=== PATIENT | male | born 1935 | race African-American/Black ===

== ENCOUNTER → 2018-03-01 | Outpatient (CLI) | payer MEDICARE | END | disposition home or self-care (01) | LOC: KCIC US 08:28 | DX: I77.811 Abdominal aortic ectasia (principal) | CPT/HCPCS: 76700 ==

== ENCOUNTER → 2018-07-30 | Outpatient (CLI) | payer MEDICARE ==
[2017-03-09 15:51] VITALS: BP 96/62
[~2018-07-30] MED LIST: ALFU10TA3 PO; AMLO5TAB7 PO; ASPI-482 PO; BRIM5DRO2 OP; FLUD0.1T PO; LATA2.5D3 EACHEYE; LISI-334 PO; LOSA100T14 PO; METF500T16 PO; MIDO10TA PO; OXYB10TA PO; REGADENOSON 0.4 MG/5 ML DISP.SYRIN. IV ONE
--- NOTE | 2018-07-30 10:47 | CARD ---
MR#: [id number] Date of Study: 07/30/2018 Ordering Physician: WILEY DURBIN, Referring Physician: WILEY DURBIN, Tech: Whitley Pak APPROVED REPORT EXAM: Two-dimensional and M-mode echocardiogram with Doppler and color Doppler. Other Information Quality : GoodHR: 52bpm INDICATION Chest Pain RISK FACTORS Hypertension Diabetes 2D DIMENSIONS RVDd3.3 (2.9-3.5cm)Left Atrium(2D)3.2 (1.6-4.0cm) IVSd1.0 (0.7-1.1cm)Aortic Root(2D)3.3 (2.0-3.7cm) LVDd5.2 (3.9-5.9cm)LVOT Diameter2.1 (1.8-2.4cm) PWd1.0 (0.7-1.1cm)LVDs3.9 (2.5-4.0cm) FS (%) 24.9 %SV62.4 ml Aortic Valve AoV Peak Brian.146.9cm/sAoV VTI29.5cm AO Peak GR.8.6mmHgLVOT Peak Brian.114.2cm/s LVOT VTI 25.54cmAO Mean GR.4mmHg JEAN (VMAX)2.34yj7HNZ (VTI)3.03cm2 AI P 1/2 Jiqy616gr Mitral Valve MV E Dkzpyrmn87.1cm/sMV DECEL UJJL130re MV A Nzxwjmla27.8cm/sMV XCB97xe E/A Ratio0.8MVA (PHT)2.57cm2 TDI E/Lateral E'6.5E/Medial E'7.8 Pulmonary Valve PV Peak Vjqafnct17.0cm/sPV Peak Grad.2mmHg Tricuspid Valve TR P. Ddnixdzp318rv/sRAP VBZNKOOK6fzWd TR Peak Gr.41wjWzDVIQ97pcVf Pulmonary Vein S1 Licezniq45.7cm/sD2 Eoagqyqm04.9cm/s PVa rzsziymu400ybff LEFT VENTRICLE The left ventricle is normal size. There is normal left ventricular wall thickness. The left ventricu lar systolic function is normal. The Ejection Fraction is 55-60%. There is normal LV segmental wall m otion. Transmitral Doppler flow pattern is Grade I-abnormal relaxation pattern. RIGHT VENTRICLE The right ventricle is normal size. There is normal right ventricular wall thickness. ATRIA The left atrium size is normal. The right atrium size is normal. The interatrial septum is intact wit h no evidence for an atrial septal defect or patent foramen ovale as noted on 2-D or Doppler imaging. AORTIC VALVE The aortic valve is normal in structure and function. Doppler and Color Flow revealed trace to mild a ortic regurgitation. There is no significant aortic valvular stenosis. MITRAL VALVE The mitral valve is thickened but opens well. There is no mitral valve stenosis. Doppler and Color-fl ow revealed trace mitral regurgitation. TRICUSPID VALVE The tricuspid valve is normal in structure and function. Doppler and Color Flow revealed trace tricus pid regurgitation. There is no tricuspid valve stenosis. PULMONIC VALVE The pulmonic valve is not well visualized. Doppler and Color Flow revealed trace pulmonic valvular re gurgitation. GREAT VESSELS The aortic root is normal in size. Normal pulmonary venous flow (Doppler). The IVC is normal in size and collapses >50% with inspiration. PERICARDIAL EFFUSION There is no evidence of significant pericardial effusion. Critical Notification Critical Value: No <Conclusion> The left ventricular systolic function is normal. The Ejection Fraction is 55-60%. There is normal LV segmental wall motion. Transmitral Doppler flow pattern is Grade I-abnormal relaxation pattern. Trace to mild aortic regurgitation. Trace mitral regurgitation. Trace tricuspid regurgitation. There is no evidence of significant pericardial effusion. Signed by : Wiley Durbin, Electronically Approved : 07/30/2018 10:45:45
--- NOTE | 2018-07-30 15:08 | RAD ---
MR#: [id number] Date of Study: 07/30/2018 Ordering Physician: WILEY SANTIAGO, Referring Physician: VICTORIA MCCRARY Tech: VAIBHAV Kwnog, ARRT (R) (N) APPROVED REPORT Test Type: Pharmacological Stress Nurse/Tech: Zoe Cat R.N. Test Indications: chest pain, dizziness Cardiac History: Family history, Hypertension Medications: See Electronic Medical Record Medical History: See Electronic Medical Record Resting ECG: sinus arrythmia, PAC's, PVC;s Resting Heart Rate: 68 bpm Resting Blood Pressure: 208/88mmHg Pretest Chest Pain: No chest pain Nurse/Tech Notes S1S2, lungs sound clear Consent: The procedure was explained to the patient in lay terms. Informed consent was witnessed. Andres eout was entered into [employer]. History and Stress Test performed by Marimar AlexanderNJaron Pharm. Details Pharmacologic stress testing was performed using 0.4mg per 5ml of regadenoson given intravenously ove r 7-10 seconds. Stress Symptoms No chest pain or symptoms. POST EXERCISE Reason for Termination: Infusion complete Target HR: 116 Max HR: 92 bpm Max Blood Pressure: 205/81mmHg Blood Pressure response to exercise: Normal blood pressure response during stress. Chest Pain: No. Arrhythmia: Yes. continues to have PAC's and PVC's ST Change: No. INTERPRETATION Stress EKG Conclusion: The resting EKG shows a sinus rhythm with mild nonspecific ST-T wave changes. The stress EKG shows no significant changes from baseline. No EKG evidence of stress-induced ischemia. Imaging Protocol IMAGE PROTOCOL: Rest Tc-99m/stress Tc-99m 1 day Rest: Stress: Viability: Radiopharm.Tc99m WotsuphgaJm81y Sestamibi Dose12.2mCi 30mCi Img Date 07/30/2018 07/30/2018 Inj-Img Xbvl02dxy. 60min. Rest Admin Site:IV - Left HandAdministrator:MARSHA Stein Stress Admin Site: IV - Left HandAdministrator: RT Gracie (R)(N) STRESS DATA End Diast. Vol.84.0mlLVEDV index BSA47.0ml End Syst. Vol.30.0mlLVESV index BSA17.0ml Myocardial Clrz177.0gEject. Oippzijm51.0% Stress Scores Regional WT1.00Summed WT12.00 Regional WM0.00Summed WM3.00 LV Perfusion The stress scans showed no significant defects. The rest scans showed no significant defects. Nuclear imaging shows no reversible ischemia or infarct. Wall Motion Normal left ventricular systolic function with an ejection fraction of 66%. LV Perf. Quant 17 Seg. SSS2.00 17 Seg. SRS5.00 17 Seg. SDS0.00 Stress Defect Extent (% LAD)0.00Rest Defect Extent (% LAD)11.30Rev. Defect Extent (% LAD)0.00 Stress Defect Extent (% LCX) 15.00Rest Defect Extent (% LCX)25.00Rev. Defect Extent (% LCX)0.00 Stress Defect Extent (% RCA)0.00Rest Defect Extent (% RCA)0.00Rev. Defect Extent (% RCA)0.00 Stress Defect Extent (% NAVIN)2.60Rest Defect Extent (% NAVIN)8.70Rev. Defect Extent (% NAVIN)0.00 Conclusion 1. No EKG evidence of stressed induced ischemia. 2. Nuclear imaging shows no reversible ischemia or infarct. 3. Left ventricular systolic function is normal with an ejection fraction of 66%. 4. Low risk Lexiscan nuclear stress test. Signed by : Ham Yeh MD Electronically Approved : 07/30/2018 15:06:44
== END | disposition home or self-care (01) ==
LOC: NM 08:46
PROVIDERS: ATTEND Internal Medicine Cardiovascular Disease
DX: R07.89 Other chest pain (principal); R42 Dizziness and giddiness; I12.9 Hypertensive chronic kidney disease with stage 1 through stage 4 chronic kidney disease, or unspecified chronic kidney disease; E11.22 Type 2 diabetes mellitus with diabetic chronic kidney disease; N18.2 Chronic kidney disease, stage 2 (mild); Z82.49 Family history of ischemic heart disease and other diseases of the circulatory system
CPT/HCPCS: 78452; 93017; 93306; 96374; 96375; 96376; A9500; J2785

== ENCOUNTER → 2018-09-06 | Outpatient (CLI) | payer MEDICARE ==
[2017-03-09 15:51] VITALS: BP 96/62
[~2018-09-06] MED LIST changes: -REGADENOSON 0.4 MG/5 ML DISP.SYRIN. IV ONE
--- NOTE | 2018-09-06 15:03 | KCIC ---
Renal ultrasound 09/06/2018 INDICATION: Chronic renal disease. COMPARISON STUDY: None. Discussion: Sonographic evaluation of the kidneys was performed. Static images are submitted to PACS. The right kidney is mildly atrophic, and mildly echogenic in appearance measuring 9.4 x 3.8 x 5.2 cm. Left kidney measures 10.1 x 5.7 x 3.9 cm and is also mildly echogenic in appearance. A somewhat nonspecific the findings most commonly related to chronic medical renal disease. No hydronephrosis, nephrolithiasis, or focal renal lesion is seen involving either kidney. Limited visualization of the bladder is unremarkable. Ureteral jets are noted bilaterally. IMPRESSION: Mildly atrophic right kidney. Mildly echogenic appearance of both kidneys. Findings suggest chronic medical renal disease. Electronically signed by: Saul Ahmadi MD (09/06/2018 2:58 PM) [facility] [facility]
== END | disposition home or self-care (01) ==
LOC: KCIC US 11:56
PROVIDERS: ATTEND Internal Medicine Nephrology
DX: E11.22 Type 2 diabetes mellitus with diabetic chronic kidney disease (principal); I12.9 Hypertensive chronic kidney disease with stage 1 through stage 4 chronic kidney disease, or unspecified chronic kidney disease; N18.9 Chronic kidney disease, unspecified
CPT/HCPCS: 76770

== ENCOUNTER → 2019-01-07 | Outpatient (CLI) | payer MEDICARE ==
[2017-03-09 15:51] VITALS: BP 96/62
[~2019-01-07] MED LIST changes: +AMLO5TAB10 PO; -AMLO5TAB7 PO
--- NOTE | 2019-01-07 11:43 | CARD ---
MR#: [id number] Date of Study: 01/07/2019 Ordering Physician: WILEY DURBIN, Referring Physician: WILEY DURBIN, Tech: APPROVED REPORT PROCEDURE: Successful implantation of [employer] Confirm loop recorder INDICATIONS: Cardiac arrhythmia and sick sinus syndrome PROCEDURE DETAILS: An informed consent was obtained from patient. Patient was brought to the procedure suite and her le ft chest and shoulder were prepped and draped in the usual fashion. 20 mL of 2% lidocaine was infilt rated into the skin and subcutaneous tissues for local anesthesia. An incision was made in the left third intercostal space 1 inch from midsternal line and using the introducer provided with the kit a track was created in subcutaneous tissue. Subsequently, with the help of the deployer provided with the kit, a [employer] Confirm loop recorder serial number [id number] was placed in the subcutaneous tiss ue. Hemostasis was secured. Patient tolerated the procedure well. There were no immediate complicat ions. At the end of procedure, the device showed sensing amplitude of 1.06 mV. CONCLUSION: Successful implantation of [employer] Confirm loop recorder to assess arrhythmia burden. Signed by : Wiley Durbin, Electronically Approved : 01/07/2019 11:42:33
== END | disposition home or self-care (01) ==
LOC: LINQ 10:39
PROVIDERS: ATTEND Internal Medicine Cardiovascular Disease
DX: I49.5 Sick sinus syndrome (principal); I49.9 Cardiac arrhythmia, unspecified
CPT/HCPCS: 33285; C1764

== ENCOUNTER → 2019-07-21 | Outpatient (CLI) | payer MEDICARE ==
[2019-07-09 11:00] VITALS: BP 135/73
[~2019-07-21] MED LIST changes: -ALFU10TA3 PO; +ALFU10TA4 PO; +ATOR10TA60 PO; +CHOL400C PO; +FERR325T14 PO; -OXYB10TA PO; +OXYB10TA2 PO; +OXYB5TAB3 PO; +REGADENOSON 0.4 MG/5 ML DISP.SYRIN. IV ONE
--- NOTE | 2019-07-21 11:16 | RAD ---
MR#: [id number] Date of Study: 07/21/2019 Ordering Physician: WILEY SANTIAGO Referring Physician: VICTORIA MCCRARY Tech: RT Kym BowmanR) (N) APPROVED REPORT Test Type: Pharmacological Stress Nurse/Tech: Trisha Pratt RN Test Indications: cardiac arrhythmia, syncope Medications: See Electronic Medical Record Medical History: See Electronic Medical Record Resting ECG: SR PAC Resting Heart Rate: 69 bpm Resting Blood Pressure: 167/86mmHg Pretest Chest Pain: None Nurse/Tech Notes Lungs CTA, S1S2 Consent: The procedure was explained to the patient in lay terms. Informed consent was witnessed. Andres eout was entered into [employer]. History and Stress Test performed by RT Brody (R) (N) Pharm. Details Pharmacologic stress testing was performed using 0.4mg per 5ml of regadenoson given intravenously ove r 7-10 seconds. Stress Symptoms No chest pain or symptoms. POST EXERCISE Reason for Termination: Infusion complete Max HR: 95 bpm Max Blood Pressure: 146/67mmHg Blood Pressure response to exercise: Normal blood pressure response during stress. Heart Rate response to exercise: normal response Chest Pain: No. Arrhythmia: Yes. PAC, PVC ST Change: No. INTERPRETATION Stress EKG Conclusion: Baseline EKG showed sinus rhythm. No ischemic changes at peak stress. No sig nificant arrhythmias. Imaging Protocol IMAGE PROTOCOL: Rest Tc-99m/stress Tc-99m 1 day Rest: Stress: Viability: Radiopharm.Tc99m VvyntyjppLs39f Sestamibi Empa76gUr 32.5mCi Duration 13min. 13min. Img Date 07/21/2019 07/21/2019 Inj-Img Wals61mot. 60min. Rest Admin Site:IV - Left HandAdministrator:VAIBHAV Kwong, ARRT (R)(N) Stress Admin Site: IV - Left HandAdministrator: RT Kym SkinnerR)(N) STRESS DATA End Diast. Vol.87.0mlLVEDV index BSA49.0ml End Syst. Vol.20.0mlLVESV index BSA11.0ml Myocardial Podx517.0gEject. Lnumiftl72.0% Stress Scores Regional WT0.00Summed WT0.00 Regional WM0.00Summed WM0.00 Study quality was good. Left Ventricular size was Normal at Rest and Stress. Lung uptake was . Left Ventricular ejection fraction is 77%. The rest and stress images show normal perfusion, normal contraction and thickening. LV Perf. Quant 17 Seg. SSS2.00 17 Seg. SRS7.00 17 Seg. SDS0.00 Stress Defect Extent (% LAD)0.00Rest Defect Extent (% LAD)6.30Rev. Defect Extent (% LAD)0.00 Stress Defect Extent (% LCX) 13.80Rest Defect Extent (% LCX)28.80Rev. Defect Extent (% LCX)0.00 Stress Defect Extent (% RCA)0.00Rest Defect Extent (% RCA)7.80Rev. Defect Extent (% RCA)0.00 Stress Defect Extent (% NAVIN)2.40Rest Defect Extent (% NAVIN)10.20Rev. Defect Extent (% NAVIN)0.00 Conclusion 1. Regadenoson cardioisotope stress test did not show any evidence of ischemia or infarct. 2. Normal left ventricular systolic function with ejection fraction calculated at 77%. 3. Low risk for cardiac events. Signed by : Wiley Santiago Electronically Approved : 07/21/2019 11:16:18
== END ==
LOC: NM 07:20
PROVIDERS: ATTEND Internal Medicine Cardiovascular Disease
DX: I25.10 Atherosclerotic heart disease of native coronary artery without angina pectoris (principal); I49.9 Cardiac arrhythmia, unspecified; I13.0 Hypertensive heart and chronic kidney disease with heart failure and stage 1 through stage 4 chronic kidney disease, or unspecified chronic kidney disease; E11.22 Type 2 diabetes mellitus with diabetic chronic kidney disease; I50.9 Heart failure, unspecified; N18.2 Chronic kidney disease, stage 2 (mild)
CPT/HCPCS: 78452; 93017; A9500; J2785

== ENCOUNTER 2019-08-26 19:03 | Emergency (ER) | payer MEDICARE ==
[~2019-08-26] VITALS: Ht 162.6 cm; Wt 73.0 kg
[~2019-08-26 19:03] MED LIST changes: +OXYB-36 PO; -OXYB10TA2 PO; +OXYB10TA26 PO; -OXYB5TAB3 PO; -REGADENOSON 0.4 MG/5 ML DISP.SYRIN. IV ONE
--- NOTE | 2019-08-26 21:48 | RAD ---
CT HEAD INDICATION: Hypertension, dizziness COMPARISON: 03/07/2019 Exposure: One or more of the following individualized dose reduction techniques were utilized for this examination: 1. Automated exposure control 2. Adjustment of the mA and/or kV according to patient size 3. Use of iterative reconstruction technique TECHNIQUE: 5 mm contiguous axial images were obtained from the skull base to the vertex in both bone and soft tissue algorithm. FINDINGS: No abnormal attenuation within the brain parenchyma. No evidence of acute intracranial hemorrhage. No extra-axial fluid collections. No mass effect or midline shift. Ventricular size is appropriate. Basal cisterns are patent. No fractures identified.Vieira-white differentiation is preserved.Globes and orbits are within normal limits. Paranasal sinuses and mastoid air cells are clear. IMPRESSION: No acute intracranial findings. Electronically signed by: Tulio Taylor MD (08/26/2019 9:45 PM) [facility] [place]
--- NOTE | 2019-08-26 21:53 | RAD ---
AP chest. HISTORY: Syncope AP view was taken of the chest. Lungs are clear. Heart is normal in size. Aorta is mildly tortuous. There is no effusion. IMPRESSION: 1. No acute infiltrates. Electronically signed by: Liborio Diallo MD (08/26/2019 9:50 PM) [facility]
[2019-08-26] MEDS: hydrALAZINE 20 MG/ML VIAL. IVP ONE ×2 (21:56→23:52)
[2019-08-26 22:07] LABS: BASO # 0.1 x10^3/uL (0.0-0.2); BASO % 1 % (0-3); EOS # 0.4 x10^3/uL (0.0-0.7); EOS % 7 % (0-3); HEMATOCRIT 38.2 % (39.0-53.0); HEMOGLOBIN 12.5 g/dL (13.0-17.5); LYMPH # 2.6 x10^3/uL (1.0-4.8); LYMPH % 43 % (24-48); MEAN CORPUSCULAR HEMOGLOBIN 30 pg (25-35); MEAN CORPUSCULAR HGB CONC 33 g/dL (31-37); MEAN CORPUSCULAR VOLUME 90 fL (79-100); MONO # 0.7 x10^3/uL (0.0-1.1); MONO % 11 % (0-9); NEUT # 2.2 x10^3/uL (1.8-7.7); NEUT % 38 % (31-73); PLATELET COUNT 206 x10^3/uL (140-400); RED BLOOD COUNT 4.24 x10^6/uL (4.30-5.70); RED CELL DISTRIBUTION WIDTH 13.4 % (11.5-14.5); WHITE BLOOD COUNT 5.9 x10^3/uL (4.0-11.0)
[2019-08-26 22:13] LABS: BILIRUBIN,URINE NEGATIVE (NEG); CLARITY,URINE CLEAR; COLOR,URINE YELLOW; NITRITE,URINE NEGATIVE (NEG); PROTEIN,URINE NEGATIVE (NEG-TRACE); UROBILINOGEN,URINE 0.2 mg/dL (0.2 mg/dL)
[2019-08-26 22:14] LABS: PROTHROMBIN TIME PATIENT 13.2 SEC (11.7-14.0)
[2019-08-26 22:19] LABS: CALCIUM 9.6 mg/dL (8.5-10.1); CREATININE 1.8 mg/dL (0.7-1.3); GFR 43.7; POTASSIUM 4.6 mmol/L (3.5-5.1)
[2019-08-26 22:24] LABS: ALBUMIN 3.6 g/dL (3.4-5.0); ALBUMIN/GLOBULIN RATIO 1.1 (1.0-1.7); TOTAL BILIRUBIN 0.3 mg/dL (0.2-1.0); TOTAL PROTEIN 6.9 g/dL (6.4-8.2)
--- NOTE | 2019-08-26 22:33 | PHYS DOC ---
Past Medical History Past Medical History: Diabetes-Type II, Glaucoma, Hypertension (OLIVERIO COFFEY APRN) Past Surgical History: Other Additional Past Surgical Histo: PROSTRATE, CATERACTS (OLIVERIO CFOFEY APRN) Alcohol Use: None Drug Use: None (OLIVERIO COFFEY APRN) Attending Signature I have participated in the care of this patient and I have reviewed and agree with all pertinent clinical information above including history, exam, and recommendations. (TREVA KIM MD) Adult General Chief Complaint Chief Complaint: HYPERTENSION HPI HPI Patient is a 84 year old male who presents with [hypertension. Patient reportedly had been taken off of his amlodipine 6 weeks ago due to his blood pressure being too low, was concerned about anything else. Reports over the last couple days they have been checking his blood pressure on, and has been noted to be higher than normal. Reports today that pressure was 218/110's. Patient does report he has felt some increasing dizziness over the last few days. Patient also reports he has recently been taken off of his metformin, reports blood sugars at home have been between 80-105, has been well-maintained off of metformin. Denies any recent weight loss. Denies any falls at home, however does report he has a history of passing out. Reports he has had this for several years.] (OLIVERIO COFFEY APRN) Review of Systems Review of Systems Constitutional: Denies fever or chills [] Eyes: Denies change in visual acuity, redness, or eye pain [] HENT: Denies nasal congestion or sore throat [] Respiratory: Denies cough or shortness of breath [] Cardiovascular: No additional information not addressed in HPI [] GI: Denies abdominal pain, nausea, vomiting, bloody stools or diarrhea [] Musculoskeletal: Denies back pain or joint pain [] Integument: Denies rash or skin lesions [] Neurologic: Denies headache, focal weakness or sensory changes does report occ asional dizziness [] Endocrine: Denies polyuria or polydipsia [] All other systems were reviewed and found to be within normal limits, except as documented in this note. (OLIVERIO COFFEY APRN) Current Medications Current Medications Current Medications Medications (Trade) Dose Ordered Sig/Rossy Start Time Stop Time Status Last Admin Dose Admin Amlodipine Besylate (Norvasc) 2.5 mg 1X ONCE 08/26/19 23:45 08/26/19 23:46 DC 08/26/19 23:47 2.5 MG Hydralazine HCl (Apresoline Inj) 10 mg 1X ONCE 08/27/19 00:00 08/27/19 00:01 DC 08/26/19 23:52 10 MG (TREVA KIM MD) Allergies Allergies Allergies Coded Allergies Type Severity Reaction Last Updated Verified No Known Drug Allergies 03/08/17 No (TREVA KIM MD) Physical Exam Physical Exam Constitutional: Well developed, well nourished, no acute distress, non-toxic appearance. [] HENT: Normocephalic, atraumatic, bilateral external ears normal, oropharynx moist, no oral exudates, nose normal. [] Eyes: PERRLA, EOMI, conjunctiva normal, no discharge. [] Neck: Normal range of motion, no tenderness, supple, no stridor. [] Cardiovascular:Heart rate regular rhythm, no murmur [] Lungs & Thorax: Bilateral breath sounds clear to auscultation [] Abdomen: Bowel sounds normal, soft, no tenderness, no masses, no pulsatile masses. [] Skin: Warm, dry, no erythema, no rash. [] Back: No tenderness, no CVA tenderness. [] Extremities: No tenderness, no cyanosis, no clubbing, ROM intact, no edema. Able to raise his legs bilateral, moves all extremities, no weakness noted. No ataxia noted[] Neurologic: Alert and oriented X 3, normal motor function, normal sensory function, no focal deficits noted. [] Psychologic: Affect normal, judgement normal, mood normal. [] (OLIVERIO COFFEY APRN) Current Patient Data Vital Signs Vital Signs Date Time Temp Pulse Resp B/P (MAP) Pulse Ox O2 Delivery O2 Flow Rate FiO2 08/27/19 00:39 77 13 98 08/26/19 23:52 206/94 08/26/19 20:11 97.6 Room Air 97.6 (TREVA KIM MD) Lab Values Laboratory Tests Test 08/26/19 22:00 White Blood Count 5.9 x10^3/uL (4.0-11.0) Red Blood Count 4.24 x10^6/uL (4.30-5.70) L Hemoglobin 12.5 g/dL (13.0-17.5) L Hematocrit 38.2 % (39.0-53.0) L Mean Corpuscular Volume 90 fL (79-100) Mean Corpuscular Hemoglobin 30 pg (25-35) Mean Corpuscular Hemoglobin Concent 33 g/dL (31-37) Red Cell Distribution Width 13.4 % (11.5-14.5) Platelet Count 206 x10^3/uL (140-400) Neutrophils (%) (Auto) 38 % (31-73) Lymphocytes (%) (Auto) 43 % (24-48) Monocytes (%) (Auto) 11 % (0-9) H Eosinophils (%) (Auto) 7 % (0-3) H Basophils (%) (Auto) 1 % (0-3) Neutrophils # (Auto) 2.2 x10^3/uL (1.8-7.7) Lymphocytes # (Auto) 2.6 x10^3/uL (1.0-4.8) Monocytes # (Auto) 0.7 x10^3/uL (0.0-1.1) Eosinophils # (Auto) 0.4 x10^3/uL (0.0-0.7) Basophils # (Auto) 0.1 x10^3/uL (0.0-0.2) Prothrombin Time 13.2 SEC (11.7-14.0) Prothrombin Time INR 1.0 (0.8-1.1) Urine Collection Type Unknown Urine Color Yellow Urine Clarity Clear Urine pH 7.0 Urine Specific [place] 1.010 Urine Protein Negative mg/dL (NEG-TRACE) Urine Glucose (UA) Negative mg/dL (NEG) Urine Ketones (Stick) Negative mg/dL (NEG) Urine Blood Negative (NEG) Urine Nitrite Negative (NEG) Urine Bilirubin Negative (NEG) Urine Urobilinogen Dipstick 0.2 mg/dL (0.2 mg/dL) Urine Leukocyte Esterase Negative (NEG) Urine RBC 0 /HPF (0-2) Urine WBC 0 /HPF (0-4) Urine Squamous Epithelial Cells Occ /LPF Urine Bacteria 0 /HPF (0-FEW) Urine Mucus Mod /LPF Urine Sperm Present /HPF Sodium Level 143 mmol/L (136-145) Potassium Level 4.6 mmol/L (3.5-5.1) Chloride Level 108 mmol/L (98-107) H Carbon Dioxide Level 28 mmol/L (21-32) Anion Gap 7 (6-14) Blood Urea Nitrogen 23 mg/dL (8-26) Creatinine 1.8 mg/dL (0.7-1.3) H Estimated GFR (Cockcroft-Gault) 43.7 BUN/Creatinine Ratio 13 (6-20) Glucose Level 103 mg/dL (70-99) H Calcium Level 9.6 mg/dL (8.5-10.1) Total Bilirubin 0.3 mg/dL (0.2-1.0) Aspartate Amino Transferase (AST) 17 U/L (15-37) Alanine Aminotransferase (ALT) 8 U/L (16-63) L Alkaline Phosphatase 51 U/L (46-116) Troponin I Quantitative < 0.017 ng/mL (0.000-0.055) RG-Hkp-G-Type Natriuretic Peptide 737 pg/mL (0-449) H Total Protein 6.9 g/dL (6.4-8.2) Albumin 3.6 g/dL (3.4-5.0) Albumin/Globulin Ratio 1.1 (1.0-1.7) Laboratory Tests 08/26/19 22:00 Laboratory Tests 08/26/19 22:00 (TREVA KIM MD) EKG EKG No STEMI . per Dr Kim @ 2026. Appears sinus bradycardia, 57/min. normal axis. [] (OLIVERIO COFFEY APRN) Radiology/Procedures Radiology/Procedures []HISTORY: Syncope AP view was taken of the chest. Lungs are clear. Heart is normal in size. Aorta is mildly tortuous. There is no effusion. IMPRESSION: 1. No acute infiltrates. Electronically signed by: Liborio Diallo MD (08/26/2019 9:50 PM) [facility] DICTATED and SIGNED BY: LIBORIO DIALLO MD DATE: 08/26/192149 FINDINGS: No abnormal attenuation within the brain parenchyma. No evidence of acute intracranial hemorrhage. No extra-axial fluid collections. No mass effect or midline shift. Ventricular size is appropriate. Basal cisterns are patent. No fractures identified.Vieira-white differentiation is preserved.Globes and orbits are within normal limits. Paranasal sinuses and mastoid air cells are clear. IMPRESSION: No acute intracranial findings. Electronically signed by: Tulio Taylor MD (08/26/2019 9:45 PM) [facility] (OLIVERIO COFFEY APRN) Course & Med Decision Making Course & Med Decision Making Pertinent Labs and Imaging studies reviewed. (See chart for details) [Reviewed prior labs, patient's renal function unchanged compared normal. reviewed imaging, no changes from normal. Noted improvement of blood pressure following medication and estrogen, patient continues resting calmly in the room. Discussed findings with patient and family, family and agreement for discharge home, with patient to follow up with primary care. We'll resume amlodipine at a small dose, patient had been taking 10 mg previously we will start him at 2.5 again. Patient to continue taking his losartan. Patient does have follow-up ap pointment with Dr. Durbin every on 08/28/19] Family concerned because tehy noticed increase in patient blood pressure over the past hour. Re=administer IV medication and administer long acting PO me dication. Following additional observation, patient reports he feels good, family reports they are comfortable letting patietn go home, and blood pressure maintained. Patient to continue with follow up with Dr Durbin in 2 days (OLIVERIO COFFEY APRN) Dragon Disclaimer Dragon Disclaimer This electronic medical record was generated, in whole or in part, using a voice recognition dictation system. (OLIVERIO COFFEY APRN) Departure Departure Impression: Primary Impression: Essential hypertension Disposition: HOME, SELF-CARE Condition: GOOD Referrals: JONATAN LANDA MD (PCP) Patient Instructions: Hypertension Additional Instructions: As we discussed, restart the amlodipine as prescribed. Keep your appointment with Dr Durbin on . Follow-up with your primary care provider as needed Scripts Amlodipine Besylate (AMLODIPINE BESYLATE) 2.5 Mg Tablet 2.5 MG PO DAILY for 14 Days, #14 TAB Prov: OLIVERIO COFFEY APRN 08/26/19 OLIVERIO COFFEY APRN Aug 26, 2019 22:33 TREVA KIM MD Aug 27, 2019 07:56
[2019-08-26 22:36] LABS: BACTERIA,URINE 0 /HPF (0-FEW); RBC,URINE 0 /HPF (0-2); WBC,URINE 0 /HPF (0-4)
[2019-08-26 22:37] LABS: SPERM,URINE PRESENT /HPF; SQUAMOUS EPITHELIAL CELL,UR OCC /LPF
[2019-08-26] MEDS ORDERED: AMLO2.5T5 PO (22:58)
[2019-08-26] MEDS: amLODIPine BESYLATE 5 MG TABLET PO ONE (23:47)
[2019-08-27 00:39] VITALS: BP 149/67
--- NOTE | 2019-08-27 07:43 | EKG ---
[facility] [address] [place] [address] Test Date: 2019-08-26 Test Time: 20:27:22 Pat Name: FELISHA HOPE Department: Room: Gender: M Electrical Solderer: : 1935 Requested By: OLIVERIO COFFEY Order Number: [id number] Reading MD: Measurements Intervals [place] Rate: 57 P: HI: QRS: -24 QRSD: 84 T: -8 QT: 406 QTc: 398 Interpretive Statements ATRIAL FLUTTER LEFTWARD AXIS T ABNORMALITY IN INFERIOR LEADS ABNORMAL ECG RI6.01 No previous ECG available for comparison
== END 2019-08-27 00:52 | disposition home or self-care (01) ==
LOC: ER 19:03
DX: I10 Essential (primary) hypertension (principal); E11.39 Type 2 diabetes mellitus with other diabetic ophthalmic complication; H40.9 Unspecified glaucoma
CPT/HCPCS: 36415; 70450; 71045; 80053; 81001; 83880; 84484; 85025; 85610; 93005; 96374; 96376; 99285; J0360

== ENCOUNTER → 2019-09-16 | Outpatient (CLI) | payer MEDICARE ==
[2019-08-27 00:39] VITALS: BP 149/67
[~2019-09-16] MED LIST changes: +AMLO2.5T5 PO
[2019-09-16 14:06] LABS: BASO # 0.1 x10^3/uL (0.0-0.2); BASO % 1 % (0-3); EOS # 0.3 x10^3/uL (0.0-0.7); EOS % 5 % (0-3); HEMATOCRIT 36.6 % (39.0-53.0); LYMPH # 2.5 x10^3/uL (1.0-4.8); LYMPH % 42 % (24-48); MEAN CORPUSCULAR HEMOGLOBIN 30 pg (25-35); MEAN CORPUSCULAR HGB CONC 33 g/dL (31-37); MEAN CORPUSCULAR VOLUME 91 fL (79-100); MONO # 0.7 x10^3/uL (0.0-1.1); MONO % 11 % (0-9); NEUT # 2.4 x10^3/uL (1.8-7.7); NEUT % 41 % (31-73); PLATELET COUNT 218 x10^3/uL (140-400); RED BLOOD COUNT 4.02 x10^6/uL (4.30-5.70); RED CELL DISTRIBUTION WIDTH 13.4 % (11.5-14.5)
[2019-09-16 14:08] LABS: CALCIUM 9.2 mg/dL (8.5-10.1); CREATININE 2.2 mg/dL (0.7-1.3); GFR 34.7; POTASSIUM 5.1 mmol/L (3.5-5.1)
[2019-09-17 04:08] LABS: HEMOGLOBIN A1C 6.3 % (4.8-5.6)
== END | disposition home or self-care (01) ==
LOC: LAB 13:35
PROVIDERS: ATTEND Family Medicine
DX: E11.9 Type 2 diabetes mellitus without complications (principal); D60.8 Other acquired pure red cell aplasias; I10 Essential (primary) hypertension
CPT/HCPCS: 36415; 80048; 83036; 85025

== ENCOUNTER → 2019-10-01 | Outpatient (CLI) | payer MEDICARE ==
--- NOTE | 2019-10-01 12:39 | RAD ---
Abdominal ultrasound, and retroperitoneal ultrasound with renal artery duplex ultrasound interrogation for hypertension and chronic kidney disease, stage III. TECHNIQUE AND FINDINGS: Real-time grayscale and color Doppler evaluation of the abdominal organs is performed. This is followed by grayscale and color interrogation of the kidneys, urinary bladder, and bilateral renal arteries and aorta. The pancreas is obscured by overlying bowel gas. The aorta is nonaneurysmal. IVC is patent. Portal vein is patent and hepatopedal. The liver is normal in size, contour, and echogenicity. No focal parenchymal abnormalities are seen. No intra or extra hepatic biliary ductal dilatation. The common bile duct measures 5 mm in diameter. The gallbladder is fluid distended and grossly unremarkable with no shadowing stones or sludge. No sonographic Braxton sign was elicited. The right kidney measures 10.1 cm and the left measures 10.0 cm. There is no focal parenchymal abnormality or hydronephrosis involving either kidney. There is normal color flow to both kidneys. The spleen measures 6.6 cm and is normal in size, though largely obscured by overlying bowel gas. Renal artery duplex ultrasound demonstrates peak systolic velocity within the patent aorta of 123 cm/s. There is normal flow within both renal arteries, with a peak systolic velocity in the middle renal artery on the right of 118 cm/s, and in the middle renal artery and the left 58 cm/s. This constitutes a ratio of less than one on both sides. There is no evidence of renal artery stenosis. The urinary bladder is largely decompressed with no gross abnormalities identified. IMPRESSION: 1. No sonographically discernible abnormality of the abdomen. 2. No evidence of renal artery stenosis. Electronically signed by: Silas Christensen MD (10/01/2019 12:36 PM) [id number]
== END | disposition home or self-care (01) ==
LOC: US 08:55
PROVIDERS: ATTEND Family Medicine
DX: I12.9 Hypertensive chronic kidney disease with stage 1 through stage 4 chronic kidney disease, or unspecified chronic kidney disease (principal); N18.3 Chronic kidney disease, stage 3 (moderate)
CPT/HCPCS: 76700; 93975

== ENCOUNTER → 2020-07-20 | Outpatient (CLI) | payer MEDICARE ==
[~2020-07-20] MED LIST changes: +AMLO-186 PO; -AMLO5TAB10 PO
--- NOTE | 2020-07-20 15:41 | KCIC ---
EXAM: Lumbar spine, 3 views. HISTORY: Pain. Lifting injury. COMPARISON: None. FINDINGS: 3 views of the lumbar spine are obtained. There is mild lumbar levocurvature centered at L1. There is a moderate chronic appearing compression fracture at L4. There is a mild chronic appearing compression fracture at T11. There is grade 1 anterolisthesis of L4 on L5. There is multilevel endplate remodeling and facet arthropathy. 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 IMPRESSION: 1. Multilevel degenerative change involving the lumbar spine, described above. 2. Chronic appearing moderate compression fracture of L4 and chronic appearing mild compression fracture of T11. 3. Grade 1 anterolisthesis of L4 on L5. Electronically signed by: Maya Hazel MD (07/20/2020 3:38 PM) [facility]
== END ==
LOC: KCIC 14:59
PROVIDERS: ATTEND Family Medicine
DX: M47.816 Spondylosis without myelopathy or radiculopathy, lumbar region (principal); M43.16 Spondylolisthesis, lumbar region; M48.56XA Collapsed vertebra, not elsewhere classified, lumbar region, initial encounter for fracture
CPT/HCPCS: 72100

== ENCOUNTER → 2020-08-06 | Outpatient (CLI) | payer MEDICARE ==
--- NOTE | 2020-08-06 14:43 | CARD ---
MR#: [id number] Date of Study: 08/06/2020 Ordering Physician: WILEY SANTIAGO, Referring Physician: WILEY SANTIAGO Tech: Jena Greer RDCS APPROVED REPORT EXAM: Two-dimensional and M-mode echocardiogram with Doppler and color Doppler. Other Information Quality : Good INDICATION Paroxysmal Atrial Fibrillation 2D DIMENSIONS RVDd3.0 (2.9-3.5cm)Left Atrium(2D)3.0 (1.6-4.0cm) IVSd1.1 (0.7-1.1cm)Aortic Root(2D)3.1 (2.0-3.7cm) LVDd4.7 (3.9-5.9cm)LVOT Diameter2.0 (1.8-2.4cm) PWd1.0 (0.7-1.1cm)LVDs2.7 (2.5-4.0cm) FS (%) 30.0 %SV75.9 ml LVEF(%)60.0 (>50%) Aortic Valve AoV Peak Brian.135.3cm/sAoV VTI28.5cm AO Peak GR.7.3mmHgLVOT Peak Brian.119.0cm/s LVOT VTI 24.53cmAO Mean GR.4mmHg JEAN (VMAX)2.31jz1IPD (VTI)2.71cm2 Mitral Valve MV E Lmmkfftw20.2cm/sMV DECEL [id number] MV A Zmbhuzek27.4cm/sMV QRB12nz E/A Ratio0.8MVA (PHT)2.41cm2 TDI E/Lateral E'9.5E/Medial E'11.7 Tricuspid Valve TR P. Oxsnaugr298ur/sRAP XDEZWEWX5bsFd TR Peak Gr.02agMqVUFO33fuUv Pulmonary Vein S1 Outakhzw17.1cm/sD2 Unwyuxqk46.4cm/s LEFT VENTRICLE The left ventricle is normal size. There is normal left ventricular wall thickness. The left ventricu lar systolic function is normal and the ejection fraction is within normal range. The Ejection Fracti on is 55-60%. There is normal LV segmental wall motion. Transmitral Doppler flow pattern is Grade I-a bnormal relaxation pattern. RIGHT VENTRICLE The right ventricle is normal size. The right ventricular systolic function is normal. ATRIA The left atrium size is normal. The right atrium size is normal. The interatrial septum is intact wit h no evidence for an atrial septal defect or patent foramen ovale as noted on 2-D or Doppler imaging. AORTIC VALVE The aortic valve is calcified but opens well. Doppler and Color Flow revealed trace aortic regurgitat ion. There is no significant aortic valvular stenosis. MITRAL VALVE The mitral valve is calcified but opens well. There is no evidence of mitral valve prolapse. There is no mitral valve stenosis. Doppler and Color-flow revealed trace to mild mitral regurgitation. TRICUSPID VALVE The tricuspid valve is normal in structure and function. Doppler and Color Flow revealed mild to mode rate tricuspid regurgitation. There is moderate pulmonary hypertension. The PA pressure was estimated at 48 mmHg. There is no tricuspid valve stenosis. PULMONIC VALVE The pulmonic valve is not well visualized. Doppler and Color Flow revealed trace pulmonic valvular re gurgitation. There is no pulmonic valvular stenosis. GREAT VESSELS The aortic root is normal in size. The ascending aorta is normal in size. The IVC is normal in size a nd collapses >50% with inspiration. PERICARDIAL EFFUSION There is no evidence of significant pericardial effusion. Critical Notification Critical Value: No <Conclusion> The left ventricle is normal size. The left ventricular systolic function is normal and the ejection fraction is within normal range. The Ejection Fraction is 55-60%. There is normal LV segmental wall motion. Doppler and Color Flow revealed trace aortic regurgitation. There is no significant aortic valvular stenosis. Doppler and Color-flow revealed trace to mild mitral regurgitation. Doppler and Color Flow revealed mild to moderate tricuspid regurgitation. The PA pressure was estimated at 48 mmHg. Signed by : Ham Yeh MD Electronically Approved : 08/06/2020 14:42:56
== END ==
LOC: ECHO 08:52
PROVIDERS: ATTEND Internal Medicine Cardiovascular Disease
DX: I08.3 Combined rheumatic disorders of mitral, aortic and tricuspid valves (principal); I48.0 Paroxysmal atrial fibrillation
CPT/HCPCS: 93306

== ENCOUNTER → 2021-09-30 | Outpatient (CLI) | payer MEDICARE ==
[2021-04-12 10:16] VITALS: BP 170/75
[~2021-09-30] MED LIST changes: +AMIO200T53 PO; +APIX2.5T PO; -LISI-334 PO; +LISI20TA18 PO; +PANT40TA77 PO; +TAMS0.4C97 PO; +TERB250T72 PO
--- NOTE | 2021-09-30 14:10 | CARD ---
MR#: [id number] Date of Study: 09/30/2021 Ordering Physician: WILEY SANTIAGO, Referring Physician: Carloz MCCRARY: Rene Barton [facility] APPROVED REPORT EXAM: Two-dimensional and M-mode echocardiogram with Doppler and color Doppler. Other Information Quality : AverageHR: 60bpm Rhythm : NSR INDICATION Atrial Fibrillation Hypertension/HCVD RISK FACTORS Hypertension 2D DIMENSIONS Left Atrium(2D)3.5 (1.6-4.0cm)IVSd1.2 (0.7-1.1cm) Aortic Root(2D)3.5 (2.0-3.7cm)LVDd4.5 (3.9-5.9cm) LVOT Diameter1.9 (1.8-2.4cm)PWd1.2 (0.7-1.1cm) LVDs2.4 (2.5-4.0cm)FS (%) 45.8 % SV70.7 ml Aortic Valve AoV Peak Brian.122.4cm/sAoV VTI23.5cm AO Peak GR.6.0mmHgLVOT Peak Brian.108.0cm/s AO Mean GR.3mmHgAVA (VMAX)2.53cm2 AI P 1/2 Iaac488ss Mitral Valve MV E Zydrozaa19.4cm/sMV E Peak Gr.4mmHg MV DECEL [id number] A Sehrncyz19.6cm/s MV E Mean Gr.1mmHgE/A Ratio0.7 Pulmonary Valve PV Peak Aupsothg66.4cm/s Tricuspid Valve TR P. Oezbhcmo066wi/sTR Peak Gr.42mmHg Pulmonary Vein S1 Whqgzftp50.2cm/sD2 Mraxhmnh08.3cm/s LEFT VENTRICLE The left ventricle is normal size. There is mild concentric left ventricular hypertrophy. The left ve ntricular systolic function is normal and the ejection fraction is within normal range. Left ventricu lar ejection fraction of 55 to 60%. There is normal LV segmental wall motion. No left ventricle throm bus noted on this study. There is no ventricular septal defect visualized. There is no left ventricul ar aneurysm. There is no mass noted in the left ventricle. RIGHT VENTRICLE The right ventricle is normal size. There is normal right ventricular wall thickness. The right ventr icular systolic function is normal. ATRIA The left atrium is mild to moderately dilated. The right atrium is mildly dilated. The interatrial se ptum is intact with no evidence for an atrial septal defect or patent foramen ovale as noted on 2-D o r Doppler imaging. AORTIC VALVE The aortic valve is mildly sclerotic. The aortic valve is trileaflet. Doppler and Color Flow revealed trace aortic regurgitation. There is no significant aortic valvular stenosis. There is no aortic thee vular vegetation. MITRAL VALVE The mitral valve is mildly thickened. There is no evidence of mitral valve prolapse. There is no mitr al valve stenosis. Doppler and Color-flow revealed mild mitral regurgitation. TRICUSPID VALVE The tricuspid valve is normal in structure and function. Doppler and Color Flow revealed mild to mode rate tricuspid regurgitation. The PA pressure was estimated at 50 mmHg. There is no tricuspid valve p rolapse or vegetation. There is no tricuspid valve stenosis. PULMONIC VALVE The pulmonary valve is normal in structure and function. Doppler and Color Flow revealed no pulmonic valvular regurgitation. There is no pulmonic valvular stenosis. GREAT VESSELS The aortic root is normal in size. The ascending aorta is normal in size. The pulmonary artery is nor mal. The IVC is normal in size and collapses >50% with inspiration. PERICARDIAL EFFUSION There is no pleural effusion. There is no evidence of significant pericardial effusion. Critical Notification Critical Value: No <Conclusion> The left ventricle is normal size. The left ventricular systolic function is normal and the ejection fraction is within normal range. Left ventricular ejection fraction of 55 to 60%. There is mild concentric left ventricular hypertrophy. Doppler and Color Flow revealed trace aortic regurgitation. There is no significant aortic valvular stenosis. Doppler and Color-flow revealed mild mitral regurgitation. Doppler and Color Flow revealed mild to moderate tricuspid regurgitation. The PA pressure was estimated at 50 mmHg. Signed by : Ham Yeh MD Electronically Approved : 09/30/2021 14:09:37
== END ==
LOC: ECHO 09:41
PROVIDERS: ATTEND Internal Medicine Cardiovascular Disease
DX: I08.3 Combined rheumatic disorders of mitral, aortic and tricuspid valves (principal); I11.9 Hypertensive heart disease without heart failure; I48.0 Paroxysmal atrial fibrillation
CPT/HCPCS: 93306; C8929